=== PATIENT | male | born 1985 | race Caucasian/White ===

== ENCOUNTER 2024-11-22 18:11 | Emergency (ER) | payer BC, SELFPAY ==
[2024-11-22 18:14] VITALS: BP 147/96; PULSE 87; TEMP 36.8; O2SAT 97; BMI 27.7
--- NOTE | 2024-11-22 18:23 | PC.NURSE ---
slight swelling to left side jaw, gum to left side back swelling observed.
--- NOTE | 2024-11-22 18:36 | ED_ITS ---
HPI HPI - General Adult General Chief complaint: Dental/Oral Stated complaint: DENTAL ISSUE Time Seen by Provider: 11/22/24 18:20 Source: patient Mode of arrival: walk-in History of Present Illness HPI narrative: 39-year-old male presents for dental issue. He is complaining of some pain and swelling to his left lower jaw and believes he has an infection. No difficulty breathing or swelling and he has not had a fever. He has had this for few days. He thinks it started when he got a piece of food stuck in his tooth a few days ago. Related Data Previous Rx's ?Medication ?Instructions ?Recorded penicillin V potassium 250 mg 250 mg PO QID 10 days #40 tabs 11/22/24 tablet Allergies Allergy/AdvReac Type Severity Reaction Status Date / Time No Known Drug Allergies Allergy Verified 11/22/24 18:18 Opioid HPI Opioid Management Most Recent Opioid Data: No Data to Display Review of Systems ROS Narrative A ten point review of systems is negative except as noted above. Exam Narrative Exam Narrative: Nurses note and vital signs reviewed and patient is not hypoxic. General: The patient appears well and in no apparent distress. Patient is resting comfortably on cart. Skin: Warm, dry, no pallor noted. There is no rash noted. Head: Normocephalic, atraumatic Eye: Normal conjunctiva, no drainage Ears, Nose, Mouth, and Throat: oral mucosa is moist. Nares patent. Mild gingival swelling present on the left lower dentition posteriorly. He has some mild swelling of the left jaw as well. No swelling to the floor of his mouth and he is handling his oral secretions well. Cardiovascular: Regular Rate and Rhythm Respiratory: Patient is in no distress, no accessory muscle use, lungs are clear to auscultation, no wheezing, rales or rhonchi Back: non-tender GI: Soft and nontender Musculoskeletal: The patient has no evidence of calf tenderness, no pitting edema, symmetrical pulses noted bilaterally Neurological: A&O, normal speech Psychiatric: Cooperative Constitutional Vital Signs, click to edit/add: Last Vital Signs Temp 98.2 F 11/22/24 18:14 Pulse 87 11/22/24 18:14 Resp 18 11/22/24 18:14 BP 147/96 H 11/22/24 18:14 Pulse Ox 97 11/22/24 18:14 O2 Del Method Room Air 11/22/24 18:14 Course Vital Signs Vital signs: Vital Signs Temperature 98.2 F 11/22/24 18:14 Pulse Rate 87 11/22/24 18:14 Respiratory Rate 18 11/22/24 18:14 Blood Pressure 147/96 H 11/22/24 18:14 Pulse Oximetry 97 11/22/24 18:14 Oxygen Delivery Method Room Air 11/22/24 18:14 Temperature 98.2 F 11/22/24 18:14 Pulse Rate 87 11/22/24 18:14 Respiratory Rate 18 11/22/24 18:14 Blood Pressure 147/96 H 11/22/24 18:14 Pulse Oximetry 97 11/22/24 18:14 Oxygen Delivery Method Room Air 11/22/24 18:14 Medical Decision Making MDM Narrative Medical decision making narrative: He was given IM Ancef and prescribed penicillin and will follow-up with his dentist. Treatment diagnosis and follow-up were discussed with the patient Differential Diagnosis Differential Diagnosis: Gingivitis, dental infection Discharge Plan Discharge Chief Complaint: Dental/Oral Clinical Impression: Dental infection Patient Disposition: Home, Self-Care Time of Disposition Decision: 18:36 Condition: Good Mode of Transportation: Private Vehicle Prescriptions / Home Meds: New penicillin V potassium 250 mg tablet 250 mg PO QID 10 Days Qty: 40 0RF Print Language: [place]ian Instructions: Dental Abscess (ED) Additional Instructions: Follow-up promptly with your dentist Referrals: Physician,Non-Staff, MD [Primary Care Provider] - 1 week
[2024-11-22] MEDS: CEFAZOLIN SODIUM 1,000 MG, WATER FOR INJECTION,STERILE 2.5 ML IM (18:51)
== END 2024-11-22 18:59 | disposition home or self-care (01) ==
PROVIDERS: Emergency Provider Emergency Medicine
DX: K04.7 Periapical abscess without sinus (principal)
CPT/HCPCS: 96372; 99284; J0690